=== PATIENT | female | born 1930 | race Caucasian/White ===

== ENCOUNTER 2017-03-12 11:15 | Emergency (ER) | payer MEDICARE ==
[~2017-03-12] VITALS: Ht 149.9 cm; Wt 47.2 kg
--- NOTE | 2017-03-12 11:20 | NUR ---
Placed in room 08 . Placed on chemistry quality control technician, blood pressure machine and pulse oximeter. To gown for exam. Side rails up. Addendum: 03/12/17 at 1147 by [email or web address] Report given to Yesenia GONZALES
[2017-03-12] MEDS ORDERED: FURO-150 PO (11:24)
[2017-03-12] MEDS ORDERED: CARV6.2554 PO (11:24)
[2017-03-12] MEDS ORDERED: AMLO5TAB4 PO (11:24)
[2017-03-12] MEDS ORDERED: IRON1CAP17 PO (11:24)
[2017-03-12] MEDS ORDERED: LORA10TA7 PO (11:24)
[2017-03-12] MEDS ORDERED: SIMV20TA2 PO (11:24)
[2017-03-12] MEDS ORDERED: ERGO500043 PO (11:24)
[2017-03-12] MEDS ORDERED: CALC0.258 PO (11:24)
[2017-03-12] MEDS ORDERED: WARF2TAB2 PO (11:24)
[2017-03-12] MEDS ORDERED: TRIA80OI TP (11:24)
[2017-03-12] MEDS ORDERED: BIMA2.5D5 OP (11:24)
[2017-03-12] MEDS ORDERED: FLUN25SP (11:24)
--- NOTE | 2017-03-12 11:24 | NUR ---
Medication reconciliation completed with information provided by [facility]. Any prior medication reconciliation on file was reviewed and corrected.
--- NOTE | 2017-03-12 11:25 | NUR ---
Pt brought by ambulance, Alert to name, pt present to ER with ALOC since last night, respirations even and unlabored, skin pink and warm, cap refill <3, pt is purposeful, per daughter pt started to get confused last night, VS stable at this time.
[2017-03-12 11:27] VITALS: BP_SYST 154
--- NOTE | 2017-03-12 11:30 | NUR ---
Kathi clemente in ED - 03/12/17 at 1139 by [email or web address] Placed in room 08 . Placed on teletypesetter monitor, blood pressure machine and pulse oximeter. To gown for exam. Side rails up.
[2017-03-12] MEDS ORDERED: [UNRECOGNIZED DRUG - CODE] SUBCUT (11:44)
--- NOTE | 2017-03-12 11:45 | NUR ---
Dr Nelson at bedside examining patient
[2017-03-12 12:35] LABS: BASOPHILS % (AUTO) 0.7 % (0.0-2.0); EOSINOPHILS % (AUTO) 1.1 % (0.0-4.0); HEMATOCRIT 27.3 % (36-48); HEMOGLOBIN 8.7 g/dL (12.0-16.0); LYMPHOCYTES # (AUTO) 0.9 K/uL (1.0-5.5); LYMPHOCYTES % (AUTO) 20.4 % (20.5-51.5); MEAN CORPUSCULAR HEMOGLOBIN 30 pg (27-31); MEAN CORPUSCULAR HGB CONC 32 % (32-36); MEAN CORPUSCULAR VOLUME 94 fL (79.0-98.0); MONOCYTES # (AUTO) 0.5 K/uL (0.0-1.0); MONOCYTES % (AUTO) 11.1 % (1.7-9.3); NEUTROPHILS # (AUTO) 2.8 K/uL (1.8-7.7); NEUTROPHILS % (AUTO) 66.7 % (40.0-70.0); PLATELET COUNT (AUTO) 166 K/uL (130-430); RED BLOOD CELL COUNT(AUTO) 2.92 MIL/uL (4.2-6.2); RED CELL DISTRIBUTION WIDTH 14.5 % (9.0-15.0); WHITE BLOOD COUNT (AUTO) 4.2 K/uL (4.8-10.8)
[2017-03-12 12:51] LABS: ANION GAP 13 (5-15); CALCIUM 8.9 mg/dL (8.4-11.0); CHLORIDE 110 mmol/L (98-107); CREATININE 3.24 mg/dL (0.55-1.30); GLUCOSE 121 mg/dL (70-99); SODIUM SERUM 144 mmol/L (136-145); UREA NITROGEN, BLOOD 77 mg/dL (8-21)
[2017-03-12 12:56] LABS: ALANINE AMINOTRANSFERASE 26 U/L (12-78); ALBUMIN 3.6 g/dL (3.4-4.8); ASPARTATE AMINOTRANSFERASE 27 U/L (10-37); TOTAL BILIRUBIN 0.5 mg/dL (0.0-1.0)
[2017-03-12 13:00] LABS: INR 5.3 (0.8-1.2); PROTHROMBIN TIME 54.5 SECS (9.5-12.5)
--- NOTE | 2017-03-12 13:01 | NUR ---
Critical lab obtained PT 54.5 and APTT 41.2 MD Elias made aware.
[2017-03-12 13:04] LABS: ALCOHOL, BLOOD < 3 mg/dL (<10)
[2017-03-12 13:22] LABS: BILIRUBIN,URINE NEGATIVE (NEGATIVE); BLOOD, URINE 1+ (NEGATIVE); CLARITY/URINE CLEAR (CLEAR); COLOR,URINE YELLOW (YELLOW); GLUCOSE,URINE NEGATIVE (NEGATIVE); KETONES,URINE NEGATIVE (NEGATIVE); LEUKOCYTE ESTERASE ,URINE NEGATIVE (NEGATIVE); NITRITE, URINE NEGATIVE (NEGATIVE); PROTEIN URINE 1+ (NEGATIVE); UROBILINOGEN,URINE 0.2 (0.2-1.0)
[2017-03-12 13:35] LABS: BACTERIA,URINE FEW /HPF (None Seen); WBC,URINE 0-3 /HPF (0-3)
[2017-03-12 13:36] LABS: BARBITURATE, URINE NEGATIVE (NEG <=200); BENZODIAZEPINE, URINE NEGATIVE (NEG <=150); CANNABINOID, URINE NEGATIVE (NEG <=50); COCAINE, URINE NEGATIVE (NEG <=150); METHAMPHETAMINES SCREEN,URINE NEGATIVE (NEG <=500); MUCUS,URINE 1+ /LPF (None Seen); OPIATE, URINE NEGATIVE (NEG <=100); PHENCYCLIDINE SCREEN,URINE NEGATIVE (NEG <=25); UR TRICYCLIC ANTIDEPRESSANTS NEGATIVE (NEG <=300); URINE AMPHETAMINE NEGATIVE (NEG <=500); URINE METHADONE NEGATIVE (NEG <=200); URINE OXYCODONE SCREEN NEGATIVE (NEG <=100); URINE PROPOXYPHENE SCREEN NEGATIVE (NEG <=300)
[2017-03-12 13:43] LABS: ACETAMINOPHEN < 1 ug/mL (1-30); CKMB RELATIVE INDEX 1.3 (0.0-2.9); CREATINE KINASE MB 3.6 ng/mL (0-3.6)
[2017-03-12] MEDS ORDERED: FUROSEMIDE 20 MG/2 ML VIAL IVP ONE (14:15)
--- NOTE | 2017-03-12 14:18 | NUR ---
Pt on stable condition, family at bedside.
[2017-03-12] MEDS ORDERED: LACTULOSE 20 GM/30 ML UDC PO ONE (15:00)
--- NOTE | 2017-03-12 16:43 | NUR ---
Called [facility] [phone] to give report on patient status, report received by Bella pt on stable condition.
--- NOTE | 2017-03-12 16:45 | NUR ---
Patient incontinent of dark brown liquid stool. Skin care given and linen changed. Awaiting ambulance transport to [place].
[2017-03-12 17:00] VITALS: BP_SYST 116
--- NOTE | 2017-03-12 17:21 | NUR ---
Note undone in EDM - 03/12/17 at 1816 by SANDRINE Patient to be transferred to [facility]. Is being transferred due to insurance. Receiving facility has accepting physician and available space. ER physician has signed transfer form. Patient or responsible constitution party has agreed to transfer and signed form. Patient belongings inventoried and will be sent with patient. Copy of nursing notes, lab reports, EKG, Physicians Orders and X-rays to be sent with patient. Report called to [place] at receiving facility. Receiving physician is Lida. [facility] ambulance service has been called for transfer. ETA is now.
--- NOTE | 2017-03-12 17:21 | NUR ---
Note undone in EDM - 03/12/17 at 1724 by SANDRINE Patient to be transferred to [facility]. Is being transferred due to insurance. Receiving facility has accepting physician and available space. ER physician has signed transfer form. Patient or responsible constitution party has agreed to transfer and signed form. Patient belongings inventoried and will be sent home with family. Copy of nursing notes, lab reports, EKG, Physicians Orders and X-rays to be sent with patient. Report called to [place] at receiving facility. Receiving physician is Lida. [facility] ambulance service has been called for transfer. ETA is now.
--- NOTE | 2017-03-12 17:27 | NUR ---
Patient's family is refusing to have patient sent to [facility], family is requesting that the patient be sent to [facility], which is where the patient's MD is at. Call placed to [place], and monorail charger operator is speaking with [place] at present.
--- NOTE | 2017-03-12 17:31 | NUR ---
Spoke with Jp at [facility] who states that [facility] is at capacity and cannot accept the patient. Family now states that they live in [facility] [place] [facility] and cannot drive out to [place] to see their mother on and would like to try and go to [facility]. Addendum: 03/12/17 at 1753 by [email or web address] Family has also indicated that they have always wanted the patient to go to [facility].
--- NOTE | 2017-03-12 17:32 | NUR ---
Patient's family now states that they will allow patient to be transported to [facility]. Call placed to [place] to see if [facility] is able to accommodate patient.
--- NOTE | 2017-03-12 17:49 | NUR ---
Family members are now stating that they believe that they have a back channel to get the patient admitted to [facility] and are attempting to do so. The ambulance is on stand by at this point.
--- NOTE | 2017-03-12 18:10 | NUR ---
Report given to Mary GONZALES, at [facility] ER-Assessment remains unchanged.
--- NOTE | 2017-03-12 18:16 | NUR ---
Patient to be transferred to [facility]. Is being transferred due to insurance. Receiving facility has accepting physician and available space. ER physician has signed transfer form. Patient or responsible republican has agreed to transfer and signed form. Patient belongings inventoried and will be sent with patient. Copy of nursing notes, lab reports, EKG, Physicians Orders and X-rays to be sent with patient. Report called to [place] at receiving facility. Receiving physician is Caity. [facility] ambulance service has been called for transfer. ETA is now.
--- NOTE | 2017-03-12 18:21 | NUR ---
Patient left ER via ambulance in [place]. FAmily aware that patient is going to [facility], and report was given to
== END 2017-03-12 17:20 | disposition short-term general hospital (02) ==
LOC: SED 11:15
DX: R41.82 Altered mental status, unspecified (principal); I50.9 Heart failure, unspecified; N18.6 End stage renal disease; K72.90 Hepatic failure, unspecified without coma; Z95.9 Presence of cardiac and vascular implant and graft, unspecified; Z88.0 Allergy status to penicillin; Z91.048 Other nonmedicinal substance allergy status; Z79.899 Other long term (current) drug therapy
CPT/HCPCS: 36415; 70450; 71010; 80053; 80307; 81000; 82140; 82550; 82553; 83605; 83880; 84484; 85025; 85610; 85730; 87040; 93005; 96374; 99285; G0480; G0481; G0482; J1940